=== PATIENT | male | born 1980 | race Hispanic/Latino ===

== ENCOUNTER 2016-07-12 11:45 | Emergency (ER) | payer BC ==
--- NOTE | 2016-07-12 12:13 | ED PDOC ---
Upper Extremity Pain/Injury Time Seen by Provider: 07/12/16 12:10 Chief Complaint (Nursing): Finger,Hand,&Wrist Chief Complaint (Provider): Right hand injury History Per: Patient History/Exam Limitations: no limitations Onset/Duration Of Symptoms: Hrs (1) Current Symptoms Are (Timing): Still Present Quality: "Pain" Severity: Moderate Exacerbating Factor(s): Strenuous Use Of Affected Area, Movement Additional History Per: Patient Additional Complaint(s): The pt is a 35yo male, right hand dominant, presents to the ED for evaluation of right hand injury an hour prior to arrival. Pt reports he was in his backyard building a deck and fell form a height of 8ft. He states he attempted to break his fall and landed on his right hand. Pt reports decreased ROM and pain to his right 5th digit. He denies any numbness or tingling and a head injury due to the fall. Currently offers no additional medical complaints. Past Medical History Reviewed: Historical Data, Nursing Documentation, Vital Signs Vital Signs: Last Vital Signs Temp 98.2 F 07/12/16 12:01 Pulse 78 07/12/16 12:01 Resp 19 07/12/16 12:01 BP 110/68 07/12/16 12:01 Pulse Ox 100 07/12/16 12:01 - Medical History PMH: No Chronic Diseases - Surgical History Surgical History: No Surg Hx - Family History Family History: States: Unknown Family Hx - Home Medications Home Medications: Ambulatory Orders Medication Instructions Recorded Naproxen [Naprosyn Tab] 1 tab PO Q8 PRN #21 tab 07/12/16 - Allergies Allergies/Adverse Reactions: Allergies Allergy/AdvReac Type Severity Reaction Status Date / Time No Known Allergies Allergy Verified 07/12/16 12:03 Review of Systems ROS Statement: Except As Marked, All Systems Reviewed And Found Negative Musculoskeletal: Positive for: Hand Pain (right hand injury) Neurological: Negative for: Other (head injury) Physical Exam - Reviewed Nursing Documentation Reviewed: Yes Vital Signs Reviewed: Yes - Physical Exam Appears: Positive for: Well, Non-toxic, No Acute Distress Head Exam: Positive for: ATRAUMATIC, NORMAL INSPECTION, NORMOCEPHALIC Skin: Positive for: Normal Color Eye Exam: Positive for: Normal appearance Neck: Positive for: Normal Cardiovascular/Chest: Positive for: Regular Rate, Rhythm Respiratory: Negative for: Respiratory Distress Pulses-Radial (R): 2+ Extremity: Positive for: Tenderness (right 5th MCP, minor depression noted), Capillary Refill (< 2 seconds), Swelling (ulnar aspect of right hand). Negative for: Normal ROM (decreased ROM on 5th right digit due to pain) Neurologic/Psych: Positive for: Alert, Oriented, Other (neurovascularly intact sensations on right hand). Negative for: Motor/Sensory Deficits - ECG O2 Sat by Pulse Oximetry: 100 (RA) Pulse Ox Interpretation: Normal - Progress ED Course And Treament: xry: fx of distal metacarpal 5th mild displacement. d/w Dr. Sage. Patient to call on Wednesday to arrange f/u Placed in ulnar gutter splint Medical Decision Making Medical Decision Making: Time: 1215 Impression: Right hand injury s/p fall. R/o fracture Plan: * XR Right hand * Reassess Pt denies pain medications. Scribe Attestation: All records were documented by Micaela Espinal, acting as a Scribe for RUBEN Quiles Provider Scribe Attestation: All medical record entries made by the Scribe were at my direction and personally dictated by me. I have reviewed the chart and agree that the record accurately reflects my personal performance of the history, physical exam, medical decision making, and the department course for this patient. I have also personally directed, reviewed, and agree with the discharge instructions and disposition. Disposition - Clinical Impression Clinical Impression: Metacarpal bone fracture - Patient ED Disposition Is Patient to be Admitted: No - Disposition Referrals: Eliseo Sage MD [Medical Doctor] - Disposition: Routine/Home Disposition Time: 17:44 Condition: FAIR Prescriptions: Naproxen [Naprosyn Tab] 1 tab PO Q8 PRN #21 tab PRN Reason: Pain, Moderate (4-7) Instructions: Hand Fracture (ED) Forms: [facility] ED School/Work Excuse
[2016-07-12 12:28] VITALS: BP 110/68; PULSE 78; RESP 19; TEMP 98.2; O2SAT 100
--- NOTE | 2016-07-12 14:07 | RAD ---
PROCEDURE: Right Hand Radiographs. HISTORY: hand injury COMPARISON: No prior however correlation made with radiographs left hand 12/17/2008. FINDINGS: BONES: Current study reveals a boxer fracture of the distal left 5th metacarpal with radial and palmar angulation of the distal fragment. . There is mild dorsal soft tissue swelling. JOINTS: Normal. No osteoarthritic changes. SOFT TISSUES: As above. OTHER FINDINGS: None. IMPRESSION: Boxer fracture 5th metacarpal with mild dorsal soft tissue as described.
== END 2016-07-12 14:00 | disposition home or self-care (01) ==
LOC: H.ER 11:45
DX: S62.306A Unspecified fracture of fifth metacarpal bone, right hand, initial encounter for closed fracture (principal); W17.89XA Other fall from one level to another, initial encounter; Y93.9 Activity, unspecified

== ENCOUNTER 2017-03-23 11:25 | Emergency (ER) | payer BC ==
[2017-03-23 11:41] VITALS: BP 140/80; PULSE 88; RESP 16; TEMP 99; O2SAT 100
[2017-03-23] MEDS ORDERED: Albuterol 0.083% Inhal Sol (2.5 mg/3 mL) UD INH STA (12:40)
[2017-03-23] MEDS ORDERED: Sodium Chloride 0.9% 1,000 ML IV STA (12:40)
[2017-03-23] MEDS ORDERED: Albuterol 0.083% Inhal Sol (2.5 mg/3 mL) UD ONE (12:56)
--- NOTE | 2017-03-23 12:56 | RAD ---
HISTORY: cough COMPARISON: No prior. TECHNIQUE: Chest PA and lateral FINDINGS: LUNGS: Small opacity noted at the left lower lobe may represent atelectasis or pneumonia. Otherwise the lungs are clear. PLEURA: No significant pleural effusion identified. No pneumothorax apparent. CARDIOVASCULAR: Normal. OSSEOUS STRUCTURES: No significant abnormalities. VISUALIZED UPPER ABDOMEN: Normal. OTHER FINDINGS: None. IMPRESSION: Small opacity noted at the left lower lobe may represent atelectasis or pneumonia. Otherwise the lungs are clear.
[2017-03-23 13:19] LABS: BASO % 0.8 % (0.0-2.0); EOS # 0.2 K/uL (0.0-0.7); EOS % 2.7 % (0.0-4.0); HEMOGLOBIN 15.5 g/dL (12.0-18.0); LYMPH # 1.3 K/uL (1.0-4.3); LYMPH % 23.4 % (20.0-40.0); MEAN CELL VOLUME 88.4 fl (80.0-94.0); MEAN CORPUSCULAR HEMOGLOBIN 31.2 pg (27.0-31.0); MEAN CORPUSCULAR HGB CONC 35.3 g/dL (33.0-37.0); MEAN PLATELET VOLUME 8.4 fl (7.2-11.7); MONO # 0.8 K/uL (0.0-0.8); MONO % 13.8 % (0.0-10.0); NEUT # 3.3 K/uL (1.8-7.0); NEUT % 59.3 % (50.0-75.0); NRBC % 0.1 % (0.0-0.0); RBC 4.96 Mil/uL (4.40-5.90); RED CELL DISTRIBUTION WIDTH 12.5 % (11.5-14.5); WHITE BLOOD COUNT 5.5 K/uL (4.8-10.8)
[2017-03-23 13:27] LABS: ALB/GLOB RATIO 1.2 (1.0-2.1); ALBUMIN 4.1 g/dL (3.5-5.0); ALT/SGPT 42 U/L (21-72); AST/SGOT 46 U/L (17-59); BLOOD UREA NITROGEN 12 mg/dl (9-20); CALCIUM 9.1 mg/dL (8.4-10.2); GFR AFRICAN-AMERICAN > 60; GFR NON-AFRICAN AMERICAN > 60
[2017-03-23] MEDS ORDERED: levoFLOXacin 500 mg in D5W 500 MG/100 ML BAG IVPB SCH (14:00)
[2017-03-23] MEDS ORDERED: levoFLOXacin 500 mg in D5W 500 MG/100 ML BAG IVPB ONE (14:05)
--- NOTE | 2017-03-23 14:34 | ED PDOC ---
HPI: CCC, URI, Sore Throat Time Seen by Provider: 03/23/17 12:14 Chief Complaint (Nursing): Flu-like Symptoms Chief Complaint (Provider): Flu-like symptoms History Per: Patient History/Exam Limitations: no limitations Have you had recent travel within the past 21 days to any of the following countries: [place], [place], [place] or [place]?: No Onset/Duration Of Symptoms: Days (x3) Current Symptoms Are (Timing): Still Present Sick Contacts (Context): None Associated Symptoms: Fever, Cough, Other (body aches, chest pain w/ cough only) Ear Symptoms: Bilateral: None Additional Complaint(s): Juan C Ortega is a 36 year old male, with no significant past medical history , who presents to the emergency department complaining of fever, cough and body aches onset for x3 days. Patient states he called Dr. Ayala who called in a prescription for Tamiflu, but without improvement of symptoms. Patient reports he now has chest pain with coughs only. He denies any shortness of breath, sick contacts, recent travel, nausea, vomit or sore throat. No further medical complaints. PMD: None provided. Past Medical History Reviewed: Historical Data, Nursing Documentation, Vital Signs Vital Signs: Last Vital Signs Temp 99.0 F 03/23/17 11:38 Pulse 88 03/23/17 11:38 Resp 16 03/23/17 11:38 BP 140/80 03/23/17 11:38 Pulse Ox 100 03/23/17 14:37 - Medical History PMH: No Chronic Diseases - Surgical History Surgical History: No Surg Hx - Family History Family History: States: Unknown Family Hx - Social History Current smoker - smoking cessation education provided: No Alcohol: None Drugs: Denies - Home Medications Home Medications: Ambulatory Orders Medication Instructions Recorded Naproxen [Naprosyn Tab] 1 tab PO Q8 PRN #21 tab 07/12/16 Albuterol HFA [Ventolin HFA 90 2 puff IH [id number] PRN #90 puff 03/23/17 mcg/actuation (8 g)] Benzonatate [Tessalon Perle] 100 mg PO Q8 PRN #30 capsule 03/23/17 Levofloxacin [Levaquin] 500 mg PO DAILY #6 tablet 03/23/17 - Allergies Allergies/Adverse Reactions: Allergies Allergy/AdvReac Type Severity Reaction Status Date / Time No Known Allergies Allergy Verified 07/12/16 12:03 Review of Systems ROS Statement: Except As Marked, All Systems Reviewed And Found Negative Constitutional: Positive for: Fever, Other (body aches) ENT: Negative for: Throat Pain Cardiovascular: Positive for: Chest Pain (w/ cough only) Respiratory: Positive for: Cough. Negative for: Shortness of Breath Gastrointestinal: Negative for: Nausea, Vomiting Physical Exam - Reviewed Nursing Documentation Reviewed: Yes Vital Signs Reviewed: Yes - Physical Exam Comments: Appears: No acute distress Skin: Normal color, Warm, Dry Eyes: Normal appearance, PERRL, EOMI ENT: Normal Cardiac: Regular rate and rhythm Lungs: Normal breath sounds, no respiratory distress, no accessory muscle use Abdominal: No tenderness Neuro: Alert, Oriented - Laboratory Results Result Diagrams: 03/23/17 13:05 03/23/17 13:05 - ECG O2 Sat by Pulse Oximetry: 100 (RA) Pulse Ox Interpretation: Normal Medical Decision Making Medical Decision Making: Initial Impression: Influenza Initial Plan: --Comp Metabolic Panel --CBC w/ differential --CXR (PA/LAT) [Chest two views (PA/LAT)] [RAD] --Albuterol 0.083% Inhal Fannie 2.5 mg INH --Levaquin 500 mg 500 mg in 100 ml IVPB --Sodium Chloride 1,000 ml IV 1,000 mls/hr --Blood culture --Influenza A B --reevaluation 12:55 CXR FINDINGS: LUNGS: Small opacity noted at the left lower lobe may represent atelectasis or pneumonia. Otherwise the lungs are clear. PLEURA: No significant pleural effusion identified. No pneumothorax apparent. CARDIOVASCULAR: Normal. OSSEOUS STRUCTURES: No significant abnormalities. VISUALIZED UPPER ABDOMEN: Normal. OTHER FINDINGS: None. IMPRESSION: Small opacity noted at the left lower lobe may represent atelectasis or pneumonia. Otherwise the lungs are clear. 1400 Case d/w Dr. Ayala, PMDarren, who agrees with care and disposition. States pt. can f /u in his office on Wednesday or Wednesday. Levaquin 500mg IV ordered. Pt in no distress. Pt. informed of plan and agrees with care. States he will see Dr. Ayala this weekend. ~ Scribe Attestation: Documented by Usama Elena, acting as a scribe for [place] PA-C. Provider Scribe Attestation: All medical record entries made by the Scribe were at my direction and personally dictated by me. I have reviewed the chart and agree that the record accurately reflects my personal performance of the history, physical exam, medical decision making, and the department course for this patient. I have also personally directed, reviewed, and agree with the discharge instructions and disposition. Disposition - Clinical Impression Clinical Impression: Influenza, Pneumonia - Patient ED Disposition Is Patient to be Admitted: No - Disposition Disposition: Routine/Home Disposition Time: 14:00 Condition: STABLE Prescriptions: Albuterol HFA [Ventolin HFA 90 mcg/actuation (8 g)] 2 puff IH [id number] PRN #90 puff PRN Reason: Cough Benzonatate [Tessalon Perle] 100 mg PO Q8 PRN #30 capsule PRN Reason: Cough Levofloxacin [Levaquin] 500 mg PO DAILY #6 tablet Instructions: Influenza (ED), Pneumocystis Jiroveci Pneumonia (ED) Forms: [facility] ([place]i) Print Language: WELSH
== END 2017-03-23 15:30 | disposition home or self-care (01) ==
LOC: H.ER 11:25
DX: J11.1 Influenza due to unidentified influenza virus with other respiratory manifestations (principal); J18.9 Pneumonia, unspecified organism
CPT/HCPCS: 71046; 80053; 85025; 87040; 87804; 94640; 96374; 99283; J7040